=== PATIENT | male | born 1995 | race African-American/Black ===

== ENCOUNTER 2017-04-05 08:22 | Emergency (ER) | payer MEDICAID ==
[2017-04-05 08:48] VITALS: BP 112/69
--- NOTE | 2017-04-05 09:24 | RADIOLOGY REPORT (SQ) ---
EXAM DESCRIPTION: ANKLE LEFT COMPLETE COMPLETED DATE/TIME: 04/05/2017 9:16 am REASON FOR STUDY: pain/injury COMPARISON: None. NUMBER OF VIEWS: Three views. TECHNIQUE: AP, lateral, and oblique radiographic images acquired of the left ankle. LIMITATIONS: None. FINDINGS: MINERALIZATION: Normal. BONES: No acute fracture or dislocation. No worrisome bone lesions. JOINTS: No effusions. SOFT TISSUES: Lateral soft tissue swelling. No foreign body. OTHER: No other significant finding. IMPRESSION: Soft tissue swelling. No acute fracture. TECHNICAL DOCUMENTATION: JOB ID: [id number] [employer]- All Rights Reserved
--- NOTE | 2017-04-05 09:27 | ER Document Report ---
ED Extremity Problem, Lower - General Chief Complaint: Ankle Pain Stated Complaint: LEFT ANKLE PAIN Time Seen by Provider: 04/05/17 09:02 Mode of Arrival: Ambulatory Information source: Patient Notes: 22-year-old male presents to ED for complaint and pain in his left ankle. 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 He states these shoes slid on the same pressures both times. He has a history of asthma reflux IBS he has broken his arm and the left ankle. TRAVEL OUTSIDE OF THE [place] IN LAST 30 DAYS: No - HPI Patient complains to provider of: Injury, Pain, Swelling Location: Ankle Occurred: This morning Where: Work Onset/Duration: Gradual Quality of pain: Achy, Sharp Severity: Moderate Pain Level: 3 Context: Wearing shoes, Other - Rolled his ankle Recent injury: Yes Associated symptoms: Painful ambulation Exacerbated by: Movement, Walking Relieved by: Elevation, Ice - Related Data Allergies/Adverse Reactions: iodine [Iodine] Allergy (Severe, Verified 04/05/17 08:43) rash, dyspnea Shellfish * [Shellfish] Allergy (Severe, Verified 04/05/17 08:43) Past Medical History - General Information source: Patient - Social History Smoking Status: Never Smoker Cigarette use (# per day): No Chew tobacco use (# tins/day): No Smoking Education Provided: No Frequency of alcohol use: None Drug Abuse: Marijuana Occupation: Maintenance Lives with: Family Family History: Reviewed & Not Pertinent Patient has suicidal ideation: No Patient has homicidal ideation: No - Past Medical History Cardiac Medical History: Reports: None Pulmonary Medical History: Reports: Hx Asthma - last need for inhaler - 2 days ago, Hx Pneumonia - @ age 12 years EENT Medical History: Reports: None Neurological Medical History: Reports: None Renal/ Medical History: Denies: Hx Peritoneal Dialysis GI Medical History: Musculoskeltal Medical History: Denies Hx Arthritis Psychiatric Medical History: Reports: Hx Attention Deficit Hyperactivity Disorder Infectious Medical History: Past Surgical History: Reports: Hx Orthopedic Surgery - bilateral upper extremities, Hx Tonsillectomy - and adeniods. Denies: Hx Pacemaker - Immunizations Immunizations up to date: Yes Hx Diphtheria, Pertussis, Tetanus Vaccination: Yes Review of Systems - Review of Systems Constitutional: No symptoms reported EENT: No symptoms reported Cardiovascular: No symptoms reported Respiratory: No symptoms reported Gastrointestinal: No symptoms reported Genitourinary: No symptoms reported Male Genitourinary: No symptoms reported Musculoskeletal: Ankle swelling Skin: Other - Ecchymosis Hematologic/Lymphatic: No symptoms reported Neurological/Psychological: No symptoms reported Physical Exam - Vital signs Vitals: Temp Pulse Resp BP Pulse Ox 97.7 F 58 L 16 112/69 99 04/05/17 08:45 04/05/17 08:45 04/05/17 08:45 04/05/17 08:45 04/05/17 08:45 Interpretation: Normal - General General appearance: Appears well, Alert - HEENT Head: Normocephalic, Atraumatic Eyes: Normal Pupils: PERRL - Respiratory Respiratory status: No respiratory distress Chest status: Nontender Breath sounds: Normal Chest palpation: Normal - Cardiovascular Rhythm: Regular Heart sounds: Normal auscultation Murmur: No - Abdominal Inspection: Normal Distension: No distension Bowel sounds: Normal Tenderness: Nontender Organomegaly: No organomegaly - Back Back: Normal, Nontender - Extremities General upper extremity: Normal inspection, Nontender, Normal color, Normal ROM , Normal temperature General lower extremity: Normal temperature Ankle: Tender, Ecchymosis, Edema - Due to pain, Limited ROM. No: Abrasion, Deformity, Instability, Laceration, Positive Oscar's test, Unable to bear weight - Painful ambulation - Neurological Neuro grossly intact: Yes Cognition: Normal Orientation: AAOx4 Dimple Coma Scale Eye Opening: Spontaneous Dimple Coma Scale Verbal: Oriented Nezperce Coma Scale Motor: Obeys Commands Dimple Coma Scale Total: 15 Speech: Normal Motor strength normal: LUE, RUE, LLE, RLE Sensory: Normal - Psychological Associated symptoms: Normal affect, Normal mood - Skin Skin Temperature: Warm Skin Moisture: Dry Skin Color: Normal Course - Re-evaluation Re-evalutation: 04/05/17 11:21 Patient instructed to elevate and ice his ankle as needed. Patient was instructed on use of Juan wrap stirrup splint and crutches. Patient was reviewed instructions on applying in and remove the Juan wraps for his comfort. Patient instructed to follow-up with the primary doctor and orthopedics. Patient was instructed on use of Tylenol and Motrin for his pain. - Vital Signs Vital signs: Temp Pulse Resp BP Pulse Ox 97.7 F 58 L 16 112/69 99 04/05/17 08:45 04/05/17 08:45 04/05/17 08:45 04/05/17 08:45 04/05/17 08:45 Procedures - Immobilization Left Ankle Time completed: 09:40 Pre-Proc Neuro Vasc Exam: Normal Immobilizer type: Juan wrap, Ankle stirrup, Crutches Performed by: Provider assisted, PCT Post-Proc Neuro Vasc Exam: Normal Alignment checked and good: Yes Discharge - Discharge Clinical Impression: Left ankle sprain Qualifiers: Encounter type: initial encounter Involved ligament of ankle: unspecified ligament Qualified Code(s): S93.402A - Sprain of unspecified ligament of left ankle, initial encounter Condition: Stable Disposition: HOME, SELF-CARE Additional Instructions: SPRAINED ANKLE: Your sprained ankle results from stretching or tearing of the ligaments which support the ankle. This usually results from twisting the foot inward and under. The ligaments will require time and protection in order to heal properly. Many ankle sprains are quite disabling, and should be taken seriously. The usual treatment for an ankle sprain is cold packs; protection with tape , splints, or wraps; elevation; and staying off the ankle for at least a day. As the ankle improves, you can walk IF it's not painful to bear weight. Sports are best postponed until healing is complete. More serious sprains usually require strengthening exercises after early healing. Your physician has assessed the seriousness of the ligament injury to your ankle. However, the treatment may change, depending on how your ankle progresses. If further exams were recommended, it is important that you follow through. Call the doctor if your foot becomes numb, painful, or severely swollen. JUAN WRAP: A compression dressing (juan wrap) has been placed. This helps hold the area still. It limits swelling and internal bleeding. The wrap should be comfortably snug -- not tight. You should feel a sense of pressure, but not severe pain under the wrap. Unless the physician tells you otherwise, you can adjust the wrap for comfort. If the wrap causes symptoms suggesting it's too tight -- uncomfortable pressure, swelling or discoloration beyond the wrap, numbness, or severe pain - - you must loosen the wrap. If these symptoms don't resolve promptly, return for re-evaluation. ANKLE STIRRUP SPLINT: You are to use an ankle brace called a stirrup splint. This type of brace allows you to place greater stresses on the ankle without risk of re-injury, and is often used for more severe ankle injuries such as avulsion fractures and ligament ruptures. The splint can be worn over a sock or tape. For proper support, wear the splint with a shoe over it. It's important that the splint fit properly. Adjust the heel tension, if needed. If your splint has air bladders, peel back the bottom of each air bladder, then move the Velcro attachment of the heel strap up or down. Air bladder pressure can be adjusted by pulling up the valve at the top, threading the air tube down into the main bladder, then blowing air into the bladder or squeezing it out. The two sides of the stirrup can be moved forward or back on your ankle by changing the attachment of the main straps. If you are unable to use the ankle comfortably in the splint, return for re -evaluation. USE OF CRUTCHES: The doctor has recommended that you not bear weight at this time. You will need to use crutches. Adjust the crutches so the tops come to about two inches under the armpit while you are standing upright. Use your hands -- not your armpits -- to support your weight. To get into a chair, support yourself with one crutch on the injured side. Hold the chair with the other hand, then lower yourself while putting all your weight on the good leg. Going up stairs is `good leg up, step up, then bring up crutches and bad leg.' Down stairs is `bad leg and crutches down, then bring good leg down.' If you develop numbness or swelling in an arm or hand, you are using the crutches incorrectly. Return if you are having any problems with the crutches. ICE & ELEVATION: Apply ice packs frequently against the painful area. Many different schedules are recommended, such as "20 minutes on, 20 minutes off" or "one hour ice, two hours rest." If you need to work, you may need to go longer between ice treatments. You should plan to have the area ice packed AT LEAST one- fourth of the time. The ice should be applied over the wrap, tape, or splint, or over a layer of cloth -- not directly against the skin. Some ice bags have a built-in cloth and can be put directly on the skin. Your injured part should be elevated as much as possible over the next 48 hours. Try to keep the injury above the level of the heart. Avoid use of the injured area. Elevation and rest will decrease the swelling. USE OF NBWM-FUY-CBUCTEM IBUPROFEN: Ibuprofen (Advil, Nuprin, Medipren, Motrin IB) is a medication for fever and pain control. In addition, it has anti- inflammatory effects which may be beneficial, especially in the treatment of injuries. It's best to take ibuprofen with food. Persons with ulcer disease or allergy to aspirin should notify their physician of this before taking ibuprofen. Ibuprofen can be given every four to six hours, for a total of four doses daily. Age Pain or fever dose Antiinflammatory dose 6-8 yr 200 mg (1 tab) 200 mg (1 tab) 9-11 yr 200 mg (1 tab) 200-400 mg (1-2 tab) 11-14 yr 200-400 mg (1-2 tab) 400 mg (2 tab) 15-adult 400 mg (2 tab) 600 mg (3 tab) FOLLOW-UP CARE: If you have been referred to a physician for follow-up care, call the physician s office for an appointment as you were instructed or within the next two days. If you experience worsening or a significant change in your symptoms, notify the physician immediately or return to the Emergency Department at any time for re-evaluation. Prescriptions: Ibuprofen 800 mg PO Q8HP PRN #20 tablet PRN Reason: Forms: Return to Work Referrals: KAYLEEN TOBAR MD [ACTIVE STAFF] - Follow up as needed
[2017-04-05] MEDS ORDERED: IBUPROFEN 800 MG TABLET PO ONE (09:28)
== END 2017-04-05 09:47 | disposition home or self-care (01) ==
LOC: ER 08:22
DX: S93.402A Sprain of unspecified ligament of left ankle, initial encounter (principal); X50.0XXA Overexertion from strenuous movement or load, initial encounter; Y93.67 Activity, basketball; Z91.013 Allergy to seafood
CPT/HCPCS: 99283; 73610; L1902; J3490

== ENCOUNTER 2018-02-14 10:30 | Emergency (ER) | payer SELFPAY ==
[2018-02-14 10:36] VITALS: BP 120/68
[2018-02-14] MEDS ORDERED: IPRATROPIUM/ALBUTEROL 0.5-2.5 MG/3 ML AMPUL NEB ONE (10:45)
[2018-02-14] MEDS ORDERED: PREDNISONE 20 MG TABLET PO ONE (10:45)
--- NOTE | 2018-02-14 11:02 | ER Document Report ---
ED Medical Screen (RME) - General Chief Complaint: Shortness Of Breath Stated Complaint: DIFFICULTY BREATHING Time Seen by Provider: 02/14/18 10:44 Mode of Arrival: Ambulatory Information source: Patient TRAVEL OUTSIDE OF THE [place] IN LAST 30 DAYS: No - HPI Patient complains to provider of: Shortness of breath Onset: Yesterday - This 22-year-old man with a history of asthma presents for evaluation of shortness of breath which developed yesterday associated with a runny nose as well as a cough. He notes that he use a nebulizer this morning which only helped modestly with his symptoms as a result he presented for further evaluation, he has not had an asthma exacerbation in several years has not been hospitalized since his childhood for asthma, he does not take any medications regularly, denies any known allergies did try to take a Zyrtec yesterday to help with the symptoms which helped only modestly. He denies any fevers, chills, lightheadedness, chest pain, abdominal pain diarrhea constipation dysuria. He has had his adenoids removed in the past and says that the mucus which he has is primarily serous in nature. - Related Data Allergies/Adverse Reactions: iodine [Iodine] Allergy (Severe, Verified 04/05/17 08:43) rash, dyspnea Shellfish * [Shellfish] Allergy (Severe, Verified 04/05/17 08:43) Past Medical History - General Information source: Patient - Social History Cigarette use (# per day): No Chew tobacco use (# tins/day): No Frequency of alcohol use: None Drug Abuse: None - Past Medical History Cardiac Medical History: Denies: Hx Coronary Artery Disease, Hx Heart Attack, Hx Hypertension Pulmonary Medical History: Reports: Hx Asthma - last need for inhaler - 2 days ago, Hx Pneumonia - @ age 12 years Denies: Hx Bronchitis, Hx COPD Neurological Medical History: Denies: Hx Cerebrovascular Accident, Hx Seizures Renal/ Medical History: Denies: Hx Peritoneal Dialysis GI Medical History: Musculoskeltal Medical History: Denies Hx Arthritis Psychiatric Medical History: Reports: Hx Attention Deficit Hyperactivity Disorder Infectious Medical History: Past Surgical History: Reports: Hx Orthopedic Surgery - bilateral upper extremities, Hx Tonsillectomy - and adeniods. Denies: Hx Pacemaker - Immunizations Immunizations up to date: Yes Hx Diphtheria, Pertussis, Tetanus Vaccination: Yes Review of Systems - Review of Systems -: Yes All other systems reviewed and negative Physical Exam - Vital signs Vitals: Temp Pulse Resp BP Pulse Ox 98.8 F 123 H 18 120/68 98 02/14/18 10:34 02/14/18 10:34 02/14/18 10:34 02/14/18 10:34 02/14/18 10:34 - General General appearance: Appears well In distress: None - HEENT Head: Normocephalic Eyes: Normal Conjunctiva: Normal Cornea: Normal Ears: Normal Nasal: Clear rhinorrhea Mouth/Lips: Normal - Respiratory Respiratory status: Tachypnea Chest status: Nontender Breath sounds: Wheezing Chest palpation: Normal - Cardiovascular Rhythm: Regular Heart sounds: Normal auscultation Murmur: No - Abdominal Inspection: Normal Distension: No distension Tenderness: Nontender - Back Back: Normal - Extremities General upper extremity: Normal inspection General lower extremity: Normal inspection - Neurological Neuro grossly intact: Yes Cognition: Normal Orientation: AAOx4 Course - Re-evaluation Re-evalutation: 02/14/18 20:59 This 22-year-old male presented for evaluation of some wheezing and shortness of breath, he notes that he has had some shortness of breath over the last day. On examination he is modestly tachypneic he did use his nebulizer this morning prior to arrival. He is in no obvious distress and able to speak in full sentences at this time. He does have some faint scattered wheezes throughout his lungs, he does not have any obvious secondary signs of infection he does have a low-grade sore throat according to him with some clear rhinorrhea. We will plan to obtain strep swab for this patient administer nebulizer as well as steroids and reassess. Upon negative strep test patient underwent nebulization during which time his wheezing improved his tachypnea improved and his sensation of shortness of breath improved. Stated that he was feeling somewhat better and that the nebulizers tend work better for him. Given that the nebulizer seemed to work better for him then do the puffers will plan for prescription of nebulizers for home, will give a prescription for steroids for the next few days as well for his probable asthma exacerbation. Encouraged follow-up with his primary physician as well as an rental coordinator regarding his current symptoms. At the time of discharge he was modestly tachycardic likely as a result of having utilized albuterol prior to discharge. - Vital Signs Vital signs: Temp Pulse Resp BP Pulse Ox 98.8 F 123 H 18 120/68 98 02/14/18 10:34 02/14/18 10:34 02/14/18 10:34 02/14/18 10:34 02/14/18 10:34 Doctor's Discharge - Discharge Clinical Impression: URI (upper respiratory infection) Qualifiers: URI type: unspecified URI Qualified Code(s): J06.9 - Acute upper respiratory infection, unspecified Asthma attack Qualifiers: Asthma severity: unspecified severity Asthma persistence: unspecified Qualified Code(s): J45.901 - Unspecified asthma with (acute) exacerbation Condition: Good Disposition: HOME, SELF-CARE Instructions: Asthma (OM), Upper Respiratory Infection, Infant or Child ([facility]) Prescriptions: Albuterol Sulfate [Albuterol Sulfate 2.5mg/3 mL] 2.5 mg IH Q4H PRN #10 ml PRN Reason: For Wheezing Prednisone [Deltasone 20 mg Tablet] 3 tab PO DAILY 5 Days tablet Referrals: CECELIA KYLE MD [ACTIVE STAFF] - Follow up as needed
== END 2018-02-14 12:09 | disposition home or self-care (01) ==
LOC: ER 10:30
DX: J06.9 Acute upper respiratory infection, unspecified (principal); J45.901 Unspecified asthma with (acute) exacerbation; R06.02 Shortness of breath; J34.89 Other specified disorders of nose and nasal sinuses; R05 Cough; R00.0 Tachycardia, unspecified; Z87.01 Personal history of pneumonia (recurrent); Z91.013 Allergy to seafood
CPT/HCPCS: 94640; 99284; 87070; 87880; J7512; J7620

== ENCOUNTER 2018-09-15 03:08 | Emergency (ER) | payer SELFPAY ==
[2018-09-15 03:19] VITALS: BP 102/76
[2018-09-15] MEDS ORDERED: ACETAMINOPHEN 325 MG TABLET PO ONE (03:35)
--- NOTE | 2018-09-15 03:41 | ER Document Report ---
ED General - General Chief Complaint: Hand Injury Stated Complaint: HAND INJURY Time Seen by Provider: 09/15/18 03:31 Primary Care Provider: KAYLEEN TOBRA MD [ACTIVE STAFF] - Follow up in 3-5 days Notes: Patient is a 23-year-old male who presents with complaint of pain to the right hand. He said he slipped and fell onto his right hand. His pain along the third and fourth metacarpals. No pain into the fingers. No distal numbness. No pain into the wrist. No other complaints at this time. TRAVEL OUTSIDE OF THE [place] IN LAST 30 DAYS: No - Related Data Allergies/Adverse Reactions: iodine [Iodine] Allergy (Severe, Verified 09/15/18 03:49) rash, dyspnea Shellfish * [Shellfish] Allergy (Severe, Verified 09/15/18 03:49) Past Medical History - Social History Smoking Status: Never Smoker Frequency of alcohol use: None Drug Abuse: None Family History: Reviewed & Not Pertinent - Past Medical History Cardiac Medical History: Denies: Hx Coronary Artery Disease, Hx Heart Attack, Hx Hypertension Pulmonary Medical History: Reports: Hx Asthma - last need for inhaler - 2 days ago, Hx Pneumonia - @ age 12 years Denies: Hx Bronchitis, Hx COPD Neurological Medical History: Denies: Hx Cerebrovascular Accident, Hx Seizures Renal/ Medical History: Denies: Hx Peritoneal Dialysis GI Medical History: Musculoskeletal Medical History: Denies Hx Arthritis Psychiatric Medical History: Reports: Hx Attention Deficit Hyperactivity Disorder Infectious Medical History: Past Surgical History: Reports: Hx Orthopedic Surgery - bilateral upper extremities, Hx Tonsillectomy - and adeniods. Denies: Hx Pacemaker - Immunizations Immunizations up to date: Yes Hx Diphtheria, Pertussis, Tetanus Vaccination: Yes Review of Systems - Review of Systems Notes: My Normal Review Basic REVIEW OF SYSTEMS: CONSTITUTIONAL : Denies fever, chills, or sweats. Denies recent illness. MUSCULOSKELETAL: Pain in right hand. SKIN: Denies rash or skin lesions. NEUROLOGICAL: Denies sensory or motor loss. ALL OTHER SYSTEMS REVIEWED AND NEGATIVE. Physical Exam - Vital signs Vitals: Temp Pulse Resp BP Pulse Ox 98.5 F 97 14 102/76 99 09/15/18 03:10 09/15/18 03:10 09/15/18 03:10 09/15/18 03:10 09/15/18 03:10 - Notes Notes: General Appearance: Well nourished, alert, cooperative, no acute distress, mild obvious discomfort. Vitals: reviewed, See vital signs table. Extremities: strength 5/5 in all extremities, good pulses in all extremities, pain to palpation over the third and fourth digits. No pain to palpation over the remainder the hand. Patient is able to flex and extend his fingers. Distal sensation intact. No pain to palpation of the right wrist. No scaphoid tenderness. Skin: warm, dry, appropriate color, no rash Neuro: speech clear, oriented x 3, normal affect, responds appropriately to questions. Course - Re-evaluation Re-evalutation: 09/15/18 03:56 Patient does have a fourth metacarpal fracture. We will place him in a volar splint. Rule out and given a sling and have him follow-up with orthopedics. Encouraged him to return to ER if he has numbness or weakness into the hand or further concerns. Patient agrees with plan and will be discharged home. Dictation of this chart was performed using voice recognition software; therefore, there may be some unintended grammatical errors. 09/15/18 04:30 - Vital Signs Vital signs: Temp Pulse Resp BP Pulse Ox 98.5 F 97 14 102/76 99 09/15/18 03:10 09/15/18 03:10 09/15/18 03:10 09/15/18 03:10 09/15/18 03:10 Procedures - Immobilization Right Hand Pre-Proc Neuro Vasc Exam: Normal Immobilizer type: Volar splint Performed by: PCT Post-Proc Neuro Vasc Exam: Normal Discharge - Discharge Clinical Impression: Fracture, metacarpal Condition: Good Disposition: HOME, SELF-CARE Additional Instructions: Your splint has an Juan wrap around it. Sometimes you can have increased swelling in your arm which will cause a splint to be too tight. Please loosen the Juan wrap around the splint if you start having any increasing pain or swelling or numbness into your hand. Please return to ER immediately if you continue have these symptoms despite loosening the splint. You have a fourth metacarpal fracture. This needs to follow-up with orthopedist. Please call the orthopedist, Dr. Tobar, to make an appointment this week for reevaluation. Return to the ER if you have any weakness or numbness into the hand or any further concerns. Forms: Special Work Note, Return to Work Referrals: KAYLEEN TOBAR MD [ACTIVE STAFF] - Follow up in 3-5 days
--- NOTE | 2018-09-15 03:50 | RADIOLOGY REPORT (SQ) ---
EXAM DESCRIPTION: XR HAND 3 OR MORE VIEWS COMPLETED DATE/TME: 09/15/2018 00:00 CLINICAL HISTORY: 23 years, Male, Pain in hand after falling on it. COMPARISON: None. FINDINGS: Minimally displaced fracture through the base of the fourth metacarpal. No dislocation. Soft tissues are unremarkable. IMPRESSION: Fourth metacarpal fracture.
== END 2018-09-15 04:23 | disposition home or self-care (01) ==
LOC: ER 03:08
DX: S62.318A Displaced fracture of base of other metacarpal bone, initial encounter for closed fracture (principal); W01.0XXA Fall on same level from slipping, tripping and stumbling without subsequent striking against object, initial encounter; J45.909 Unspecified asthma, uncomplicated
CPT/HCPCS: 99283